=== PATIENT | male | born 1955 | race Caucasian/White ===

== ENCOUNTER → 2020-02-14 | Outpatient (CLI) | payer OTHER ==
[~2020-02-14] MED LIST: ACET-49 PO; ADV250 IH; ALBU8.5H8 IH; ESCI20TA36 PO; LITH300C3 PO; MIRT15TA6 PO; OMEP40CA13 PO; TIOT18CA3 IH
== END | disposition home or self-care (01) ==
LOC: RAH 10:57
PROVIDERS: ATTEND Internal Medicine Cardiovascular Disease
DX: Z13.6 Encounter for screening for cardiovascular disorders (principal)
CPT/HCPCS: 75571